=== PATIENT | male | born 1970 | race Caucasian/White ===

== ENCOUNTER 2018-11-16 21:25 | Emergency (ER) | payer MEDICAID ==
[~2018-11-16] VITALS: Ht 170.2 cm; Wt 99.8 kg
[2018-11-16 21:36] VITALS: BP 144/79
--- NOTE | 2018-11-16 22:40 | NUR ---
PT TAKEN TO BED 8
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
--- NOTE | 2018-11-16 22:54 | NUR ---
Dr. Valdes examining patient.
[2018-11-16] MEDS ORDERED: NEOMYCIN/POLYMYXIN/BACITRACIN 0.9 GM/1 PKT TP ONE (23:00)
[2018-11-16] MEDS ORDERED: LIDOCAINE 1% ***ER ONLY *** 10 MG/ML VIAL INJ ONE (23:00)
[2018-11-16] MEDS ORDERED: LIDOCAINE MPF 1% - 5 mL VIAL 5 ML ONE (23:19)
--- NOTE | 2018-11-16 23:19 | NUR ---
DR. DOSS PERFORMING LAC REPAIR AT BEDSIDE. LIDOCAINE ADMINISTERED BY DR. DOSS.
[2018-11-16 23:47] VITALS: BP 133/86
--- NOTE | 2018-11-16 23:47 | NUR ---
DISCHARGE PAPERS GIVEN TO PT. BLEEDING CONTROLLED. 0/10 PAIN. BACITRACIN APPLIED. COVERED WITH NON-ADHESIVE POLO. RX OF MOTRIN GIVEN. SIDE EFFECTS EXPLAINED. AFTER CARE INSTRCUTIONS PROVIDED. PT VERBALLIZED UNDERSTANDING OF DC INSTRUCTIONS. ALL QUESTIONS ANSWERED.
== END 2018-11-16 23:47 | disposition home or self-care (01) ==
LOC: MED 21:25
DX: S61.412A Laceration without foreign body of left hand, initial encounter (principal); Z98.890 Other specified postprocedural states; W27.8XXA Contact with other nonpowered hand tool, initial encounter; Y93.89 Activity, other specified; Y92.89 Other specified places as the place of occurrence of the external cause; Y99.8 Other external cause status
CPT/HCPCS: 12001; 99283; J2001

== ENCOUNTER 2018-11-23 10:32 | Emergency (ER) | payer MEDICAID ==
[~2018-11-23] VITALS: Ht 170.2 cm; Wt 99.8 kg
[2018-11-23 10:36] VITALS: BP 123/83
--- NOTE | 2018-11-23 10:40 | NUR ---
PATIENT AMBULATED TO BED 5 AT THIS TIME.
--- NOTE | 2018-11-23 10:53 | NUR ---
DR CULP AT BEDSIDE
--- NOTE | 2018-11-23 10:56 | NUR ---
CAME HERE FOR SUTURE REMOVAL TO LEFT HAND. [address] SITE APPEARS TO BE HEALING WELL, NO REDNESS, SWELLING, OR DRAINAGE. [id number]. BED IS DWON, LOCKED, BED RAIL X 1, ERMD TO SEE PT MED HX:DENIES
--- NOTE | 2018-11-23 10:56 | NUR ---
RESIDENT AT BEDSIDE FOR SUTURE REMOVAL
[2018-11-23 11:15] VITALS: BP 121/83
--- NOTE | 2018-11-23 11:15 | NUR ---
Patient discharged with v/s stable. Written and verbal after care instructions given and explained REGARDING AFTER CARE FOR SUTURE REMOVAL. Patient verbalized understanding. Ambulatory with steady gait. All questions addressed prior to discharge.
== END 2018-11-23 11:15 | disposition home or self-care (01) ==
LOC: MED 10:32
DX: S61.412D Laceration without foreign body of left hand, subsequent encounter (principal); W27.8XXD Contact with other nonpowered hand tool, subsequent encounter
CPT/HCPCS: 99281

== ENCOUNTER 2019-04-11 22:31 | Emergency (ER) | payer MEDICAID ==
[~2019-04-11] VITALS: Ht 170.2 cm; Wt 102.1 kg
[2019-04-11 22:49] VITALS: BP 140/86
[2019-04-12] MEDS ORDERED: KETOROLAC 30 MG/ML VIAL IVP ONE (00:55)
[2019-04-12] MEDS ORDERED: ONDANSETRON 4 MG/2 ML VIAL IVP ONE (00:55)
[2019-04-12] MEDS ORDERED: NACL 0.9% 1,000 ML IV ONE (00:55)
[2019-04-12] MEDS ORDERED: diphenhydrAMINE 50 MG/ML VIAL IVP ONE (01:35)
[2019-04-12] MEDS ORDERED: METOCLOPRAMIDE 10 MG/2 ML INJ VIAL IVP ONE (01:35)
[2019-04-12 02:20] VITALS: BP 133/77
== END 2019-04-12 02:20 | disposition home or self-care (01) ==
LOC: MED 22:31
DX: R51 Headache (principal); R11.2 Nausea with vomiting, unspecified; Z98.890 Other specified postprocedural states
CPT/HCPCS: 87804; 96361; 96374; 96375; 99283; J1200; J1885; J2405; J2765